=== PATIENT | female | born 1965 | race Hispanic/Latino ===

== ENCOUNTER 2017-03-04 16:00 | Outpatient (RCR) | payer OTHER ==
[~2017-03-04 16:00] MED LIST: CYCLOBENZAPRINE10 MG PO; DICYCLOMINE HCL20 MG PO; NAPROXEN PO; nexium PO; synthroid PO
== END 2017-03-15 ==
LOC: PT 16:00
PROVIDERS: ATTEND Neurological Surgery
DX: M47.892 Other spondylosis, cervical region (principal); M53.82 Other specified dorsopathies, cervical region; M62.81 Muscle weakness (generalized)
CPT/HCPCS: 97139

== ENCOUNTER → 2017-08-11 | Day surgery (SDC) | payer OTHER ==
[~2017-08-11] MED LIST changes: +ASPIR 8181 MG PO; +ATENOLOL100 MG PO; +AZOR 10-40 MG1 EACH PO; +FENTANYL CITRATE/PF 100MCG/2 ML INJ ONE; +HYOSCYAMINE SULFATE 0.5 MG/ML AMP ONE; +LOESTRIN PO; +MIDAZOLAM HCL 2 MG/2 ML VIAL ONE; +NEXIUM PO; +PROPOFOL IV EMULSION 10 MG/ML 50 ML VIAL ONE; +SIMETHICONE 40 MG/0.6 ML BTL ONE; +SYNTHROID PO; +ZANTAC PO; +ZOFRAN PO
--- OUTSIDE RECORDS SUMMARY | 2017-08-11 09:34 | XMS REPORT ---
Author Author [facility] Address Unknown Phone Unavailable Care Team Providers Care [employer] Roller Name Role Phone HO LATIF Unavailable Unavailable Problems This patient has no known problems. Allergies, Adverse Reactions, Alerts This patient has no known allergies or adverse reactions. Medications This patient has no known medications. Results Test Description Test Time Test Comments Text Results Atomic Results Result Comments CT BRAIN WO [place] [address] Patient Name: KARL CORDOBA MR #: [id number] : 1965 Age/Sex: 51/F Req #: [id number] Adm Physician: Ordered by: HO LATIF MD Report #: [id number] Location: ER Room/Bed: Procedure: [id number] CT/CT BRAIN WO Exam Date: Exam Time: REPORT STATUS: Signed History: Altered mental status, weak legs Comparison studies: None Technique: Axial images were obtained from the skull base to the vertex. Coronal and sagittal reconstructions obtained from the axial data. Findings: Scalp/skull: No abnormalities. No fractures, blastic or lytic lesions. Extra-axial spaces: No masses. No fluid collections. Brain sulci: Appropriate for age. Ventricles: Normal in size and configuration. No hydrocephalus. Parenchyma: No abnormal densities. No masses, hemorrhage, acute or chronic cortical vascular insults. Sellar/suprasellar region: No abnormalities Craniocervical junction: Patent foramen magnum. No Chiari one malformation. IMPRESSION: No abnormalities. Signed by: Dr. Alli Cifuentes M.D. on 2016 5:49 PM Dictated By: ALLI CIFUENTES MD, MD 48 Transcribed By: KARISHMA on 01/24/171748 COPY TO: HO LATIF MD CT CERVICAL SPINE WO [place] [address] Patient Name: KARL CORDOBA MR #: [id number] : 1965 Age/Sex: 51/F Req #: [id number] Adm Physician: Ordered by: HO LATIF MD Report #: [id number] Location: ER Room/Bed: Procedure: [id number] CT/CT CERVICAL SPINE WO Exam Date: Exam Time: REPORT STATUS: Signed History: Trauma Comparison studies: None Technique: Axial images were obtained through the cervical region.. Coronal and sagittal images reconstructed from the axial data.. Intravenous contrast: None Findings: Airway: Patent. Fractures: None. Soft tissues: No gross abnormalities. Atlantoaxial articulation: Intact. Alignment: Reversal of the usual lordosis is centered at C6. No scoliosis. Cervicomedullary junction: No abnormalities. The foramen magnum is patent. Vertebrae: No infection or neoplasm. Postsurgical changes: Patient status post anterior cervical fusion at C6-7. Hardware in place. No loosening or failure. The intervening disc is still visualized. 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 Mild spinal canal stenosis at C5-6 due to disc osteophyte complexes. IMPRESSION: 1. No acute abnormalities. 2. Cannot adequately evaluate for ligament, spinal cord and or vascular abnormalities. Chronic findings: Patient status post anterior cervical fusion at C6-C7. Hardware in place. Degenerative changes as described. Signed by: Dr. Alli Cifuentes M.D. on 01/24/2017 5:52 PM Dictated By : ALLI CIFUENTES MD, MD 51 Transcribed By: KARISHMA on 01/24/171751 COPY TO: HO LATIF MD
--- NOTE | 2017-08-11 13:19 | Operative Report ---
DATE OF PROCEDURE: August 11, 2017 REFERRING PHYSICIAN: Dr. James De Dios PROCEDURE PERFORMED 1. Esophagogastroduodenoscopy with biopsies. 2. Colonoscopy with polypectomy. INDICATIONS FOR ESOPHAGOGASTRODUODENOSCOPY: Upper abdominal pain, nausea and vomiting. INDICATIONS FOR COLONOSCOPY: Colorectal cancer screening, personal history of colon polyps. MEDICATION: Patient was done under MAC. Please see anesthesiologist's note. PROCEDURE: With patient in left lateral decubitus position, flexible fiberoptic Olympus gastroscope was introduced into the esophagus under direct visualization without any difficulty. The mucosa overlying the distal esophagus revealed some patchy erythema. The scope was then advanced with ease into the stomach. Mucosa overlying the antrum and the body revealed some patchy erythema and mild to moderate edema and biopsies were obtained and sent to stain for H. pylori. Two duodenal ulcers were noted along the posterior wall of the duodenal bulb without active bleeding or stigmata of recent hemorrhage. The scope was then advanced with ease into the 2nd portion and mucosa overlying the proximal 2nd portion appeared to be within normal limits. The scope was then withdrawn back into the stomach and retroflexion of mucosa overlying the fundus and the cardia appeared to be within normal limits. The scope was then straightened out and was subsequently withdrawn. Patient tolerated the procedure well. IMPRESSION 1. Distal esophagitis. 2. Gastritis, biopsied. Biopsies sent to stain for H. pylori. 3. Duodenal ulcers, bulb, largest of which about 6 mm. Without active bleeding. PLAN: Follow up histology. Increase Nexium to 40 mg 1 p.o. a.c. b.i.d. Patient was then turned around. After adequate lubrication of the anal canal, a flexible fiberoptic Olympus colonoscope was inserted into the rectum with ease and advanced all the way to the cecum. One polyp was encountered in cecum that was snared. One polyp was hot biopsied from the ascending colon. The rest of the ascending, transverse, descending, sigmoid and rectum appeared to be within normal limits. The scope was then retroflexed into the distal rectum and small internal hemorrhoids were noted none of which was actively bleeding. The scope was then straightened and was subsequently withdrawn. Patient tolerated the procedure well. IMPRESSION 1. Cecal polyp snared. 2. Ascending colon polyp hot biopsied. 3. Internal hemorrhoids none actively bleeding. PLAN: Follow up histology. Initiate high-fiber low-fat diet. Initiate high-fiber supplement. Patient will need a followup colonoscopy in 3 years. Job#: [id number] cc:CASSIE DE DIOS DO
== END | disposition home or self-care (01) ==
LOC: OR 09:32
PROVIDERS: ATTEND Internal Medicine Gastroenterology
DX: Z12.11 Encounter for screening for malignant neoplasm of colon (principal); K63.5 Polyp of colon; K29.70 Gastritis, unspecified, without bleeding; K20.9 Esophagitis, unspecified; K26.9 Duodenal ulcer, unspecified as acute or chronic, without hemorrhage or perforation; K64.8 Other hemorrhoids; E03.9 Hypothyroidism, unspecified; K21.9 Gastro-esophageal reflux disease without esophagitis; Z01.810 Encounter for preprocedural cardiovascular examination
CPT/HCPCS: 43239; 45384; 45385; 81025; 93005; J1980; J2250

== ENCOUNTER → 2018-03-29 | Outpatient (CLI) | payer OTHER ==
[~2018-03-29] MED LIST changes: -FENTANYL CITRATE/PF 100MCG/2 ML INJ ONE; -HYOSCYAMINE SULFATE 0.5 MG/ML AMP ONE; -MIDAZOLAM HCL 2 MG/2 ML VIAL ONE; -PROPOFOL IV EMULSION 10 MG/ML 50 ML VIAL ONE; -SIMETHICONE 40 MG/0.6 ML BTL ONE
--- NOTE | 2018-03-29 10:43 | Diagnostic Imaging Report ---
EXAM: US ABDOMEN COMPLETE DATE: 03/29/2018 9:37 AM INDICATION: Right-sided abdominal pain. COMPARISON: None TECHNIQUE: Transverse and longitudinal houser scale and color doppler sonographic images of the upper abdomen were obtained. FINDINGS: LIVER 15.4 cm in the right midclavicular line. Normal echogenicity of the liver with normal contour, no masses. SPLEEN 8.9 cm in maximum diameter. Normal echogenicity, no masses. GALLBLADDER Status post cholecystectomy. BILE DUCTS No intra nor extra-hepatic biliary dilation. Common bile duct measures 0.4 cm PANCREAS: Visualized portions are normal. RIGHT KIDNEY: 10.0 cm Echogenicity: Normal Collecting System: No hydronephrosis Stones: None Cyst/Mass: None LEFT KIDNEY: 9.3 cm Echogenicity: Normal Collecting System: No hydronephrosis Stones: None Cyst/Mass: None VESSELS: Aorta: Visualized portions are within normal size limits Inferior Vena Cava: Visualized portions are normal Main Portal Vein: 0.7 cm, normal size with hepatopetal flow. FREE FLUID: None IMPRESSION: No acute intraabdominal sonographic findings. Status post cholecystectomy. Signed by: Dr. Chaparro Shine MD on 03/29/2018 10:39 AM
== END ==
LOC: US 09:30
PROVIDERS: ATTEND Internal Medicine Gastroenterology
DX: R10.9 Unspecified abdominal pain (principal)
CPT/HCPCS: 76700

== ENCOUNTER → 2020-09-28 | Day surgery (SDC) | payer OTHER ==
[~2020-09-28] MED LIST changes: +FENTANYL CITRATE/PF 100MCG/2 ML INJ ONE; +MIDAZOLAM HCL 2 MG/2 ML VIAL ONE; +PROPOFOL IV EMULSION 10 MG/ML 20 ML VIAL ONE
[2020-09-28 14:25] VITALS: BP 89/62
== END | disposition home or self-care (01) ==
LOC: OR 09:35
PROVIDERS: ATTEND Internal Medicine Gastroenterology
DX: K29.50 Unspecified chronic gastritis without bleeding (principal); K26.9 Duodenal ulcer, unspecified as acute or chronic, without hemorrhage or perforation; E03.9 Hypothyroidism, unspecified; K58.9 Irritable bowel syndrome, unspecified; K21.9 Gastro-esophageal reflux disease without esophagitis; K20.90 Esophagitis, unspecified without bleeding; K62.1 Rectal polyp; K64.8 Other hemorrhoids; R10.13 Epigastric pain; K59.09 Other constipation; Z68.25 Body mass index [BMI] 25.0-25.9, adult; Z87.19 Personal history of other diseases of the digestive system; Z91.018 Allergy to other foods; Z86.010 Personal history of colon polyps; Z01.810 Encounter for preprocedural cardiovascular examination
CPT/HCPCS: 43239; 45380; 81025; 93005; J2250; J2704; J3010; 45378

== ENCOUNTER 2021-03-06 05:09 | Emergency (ER) | payer OTHER ==
[~2021-03-06] VITALS: Ht 162.6 cm; Wt 64.0 kg
[~2021-03-06 05:09] MED LIST changes: -FENTANYL CITRATE/PF 100MCG/2 ML INJ ONE; -MIDAZOLAM HCL 2 MG/2 ML VIAL ONE; -PROPOFOL IV EMULSION 10 MG/ML 20 ML VIAL ONE
[2021-03-06] MEDS ORDERED: SODIUM CHLORIDE 0.9% 1000ML 1,000 ML IV STA (05:28)
[2021-03-06] MEDS ORDERED: DONNATAL/LIDOCAINE/MAALOX 30 ML SUSP PO ONE (05:30)
[2021-03-06 05:40] LABS: BASOPHILS % 0.6 % (0.0-1.0); EOSINOPHILS # (AUTO) 0.1 (0.0-0.4); EOSINOPHILS % 1.5 % (0.0-6.0); HEMATOCRIT 42.2 % (34.2-44.1); HEMOGLOBIN 13.6 g/dL (12.0-16.0); LYMPHOCYTES # (AUTO) 2.5 (1.0-3.2); LYMPHOCYTES % 34.6 % (18.0-39.1); MEAN CORPUSCULAR HEMOGLOBIN 29.1 pg (28-32); MEAN CORPUSCULAR HGB CONC 32.2 g/dL (31-35); MEAN CORPUSCULAR VOLUME 90.2 fL (81-99); MONOCYTES # (AUTO) 0.3 (0.2-0.8); MONOCYTES % 4.4 % (4.4-11.3); NEUTROPHILS # (AUTO) 4.2 (2.1-6.9); NEUTROPHILS % 58.6 % (38.7-80.0); PLATELET COUNT 190 x10e3/uL (140-360); RED BLOOD COUNT 4.68 x10e6/uL (3.6-5.1); RED CELL DISTRIBUTION WIDTH 12.8 % (11.7-14.4)
[2021-03-06 05:50] LABS: COLOR,URINE YELLOW (YELLOW)
[2021-03-06 05:51] LABS: CLARITY,URINE CLEAR (CLEAR); KETONES,URINE NEGATIVE (NEGATIVE); LEUKOCYTE ESTERASE ,URINE SMALL (NEGATIVE); NITRITE,URINE NEGATIVE (NEGATIVE); PROTEIN,URINE DIPSTICK TRACE (NEGATIVE); URINE UROBILINOGEN 0.2 mg/dL (0.2 - 1)
[2021-03-06 05:56] LABS: BACTERIA,URINE FEW /HPF; EPITHELIAL CELLS,URINE FEW /LPF; RBC,URINE 0-5 /HPF (0-5); WBC,URINE (MAN) >50 /HPF (0-5)
[2021-03-06] MEDS ORDERED: MAGNESIUM/ALUMINUM/SIMETHICONE 30 ML UDC ONE (06:08)
[2021-03-06] MEDS ORDERED: BELLADONNA ALK/PHENOBARBITAL 5 ML UDC ONE (06:08)
[2021-03-06] MEDS ORDERED: CEFTRIAXONE 1 GM in SODIUM CHLORIDE 0.9% 50ML 50 ML IV ONE (06:15)
[2021-03-06 06:20] LABS: ALBUMIN 3.8 g/dL (3.5-5.0); ALBUMIN/GLOBULIN RATIO 1.2 (0.8-2.0); CALCIUM 9.1 mg/dL (8.4-10.2); CREATININE, SERUM 0.92 mg/dL (0.57-1.11)
[2021-03-06 06:44] LABS: CREATINE KINASE MB 0.5 ng/mL (0-5.0)
[2021-03-06] MEDS ORDERED: COLACE100 MG PO (06:48)
[2021-03-06] MEDS ORDERED: DULCOLAX10 MG PR (06:48)
[2021-03-06] MEDS ORDERED: MAGNESIUM CITR296 ML PO (06:48)
[2021-03-06] MEDS ORDERED: CEPHALEXIN500 MG PO (06:48)
== END 2021-03-06 07:19 | disposition home or self-care (01) ==
LOC: ER 05:19
DX: N39.0 Urinary tract infection, site not specified (principal); K29.70 Gastritis, unspecified, without bleeding; K59.00 Constipation, unspecified; E03.9 Hypothyroidism, unspecified; Z91.018 Allergy to other foods; Z98.1 Arthrodesis status; Z79.899 Other long term (current) drug therapy
CPT/HCPCS: 36415; 74018; 80053; 81001; 82550; 82553; 83690; 84484; 85025; 93005; 99284; C9113; J0696; J7030

== ENCOUNTER → 2021-12-27 | Outpatient (CLI) | payer OTHER ==
[~2021-12-27] MED LIST changes: +CEPHALEXIN500 MG PO; +COLACE100 MG PO; +DULCOLAX10 MG PR; +IOPAMIDOL 370 MG/ML 100 ML INFUS..BTL INJ ONE; +MAGNESIUM CITR296 ML PO
== END ==
LOC: CT 11:33
PROVIDERS: ATTEND Internal Medicine Gastroenterology
DX: R10.30 Lower abdominal pain, unspecified (principal)
CPT/HCPCS: 74177; Q9967

== ENCOUNTER 2022-08-22 08:52 | Emergency (ER) | payer OTHER ==
[~2022-08-22] VITALS: Ht 162.6 cm; Wt 64.0 kg
[~2022-08-22 08:52] MED LIST changes: -IOPAMIDOL 370 MG/ML 100 ML INFUS..BTL INJ ONE
[2022-08-22] MEDS ORDERED: Morphine 4mg INJECTION 4 MG/ML INJ IV STA (09:10)
[2022-08-22] MEDS ORDERED: ONDANSETRON HCL INJ 2MG/ML 2ML 2 MG/ML VIAL IV STA (09:10)
[2022-08-22] MEDS ORDERED: SODIUM CHLORIDE 0.9% 1000ML 1,000 ML IV STA (09:10)
[2022-08-22 09:21] LABS: BASOPHILS % 0.5 % (0.0-1.0); EOSINOPHILS # (AUTO) 0.1 (0.0-0.4); EOSINOPHILS % 1.7 % (0.0-6.0); HEMATOCRIT 42.8 % (34.2-44.1); LYMPHOCYTES # (AUTO) 2.4 (1.0-3.2); LYMPHOCYTES % 31.7 % (18.0-39.1); MEAN CORPUSCULAR HEMOGLOBIN 28.8 pg (28-32); MEAN CORPUSCULAR HGB CONC 32.7 g/dL (31-35); MEAN CORPUSCULAR VOLUME 88.1 fL (81-99); MONOCYTES # (AUTO) 0.4 (0.2-0.8); MONOCYTES % 5.3 % (4.4-11.3); NEUTROPHILS # (AUTO) 4.5 (2.1-6.9); NEUTROPHILS % 60.7 % (38.7-80.0); PLATELET COUNT 208 x10e3/uL (140-360); RED BLOOD COUNT 4.86 x10e6/uL (3.6-5.1); RED CELL DISTRIBUTION WIDTH 13.4 % (11.7-14.4)
[2022-08-22 09:42] LABS: CLARITY,URINE SL CLOUDY (CLEAR); COLOR,URINE ORANGE (YELLOW); LEUKOCYTE ESTERASE ,URINE LARGE (NEGATIVE)
[2022-08-22 09:43] LABS: KETONES,URINE TRACE (NEGATIVE); NITRITE,URINE POSITIVE (NEGATIVE); PROTEIN,URINE DIPSTICK 2+ (NEGATIVE)
[2022-08-22 09:44] LABS: INR 0.97; PROTHROMBIN TIME 13.4 seconds (11.9-14.5)
[2022-08-22 09:45] LABS: PARTIAL THROMBOPLASTIN TIME 30.8 seconds (23.8-35.5)
[2022-08-22 09:46] LABS: BACTERIA,URINE FEW /HPF; EPITHELIAL CELLS,URINE FEW /LPF
[2022-08-22 09:56] LABS: ALANINE AMINOTRANSFERASE 40 IU/L (0-55); ALBUMIN/GLOBULIN RATIO 1.1 (0.8-2.0); ALKALINE PHOSPHATASE 63 IU/L (40-150); ANION GAP 12.9 mmol/L (8-16); BLOOD UREA NITROGEN 17 mg/dL (7-26); BUN/CREATININE RATIO 20 (6-25); CALCIUM 9.8 mg/dL (8.4-10.2); CARBON DIOXIDE 27 mmol/L (22-29); CHLORIDE 102 mmol/L (98-107); CREATININE, SERUM 0.87 mg/dL (0.57-1.11); GLUCOSE 90 mg/dL (74-118); LIPASE 28 U/L (8-78); MAGNESIUM 1.9 MG/DL (1.3-2.1); POTASSIUM 3.9 mmol/L (3.5-5.1); SODIUM 138 mmol/L (136-145)
[2022-08-22] MEDS ORDERED: KETOROLAC TROMETHAMINE 30 MG/ML VIAL IV STA (10:50)
[2022-08-22] MEDS ORDERED: FAMOTIDINE 20 MG/2 ML VIAL IV ONE (10:59)
[2022-08-22] MEDS ORDERED: CEFDINIR300 MG PO (11:31)
[2022-08-22] MEDS ORDERED: ULTRAM 50MG50 MG PO (11:31)
[2022-08-22] MEDS ORDERED: PYRIDIUM100 MG PO (11:31)
[2022-08-22] MEDS ORDERED: ONDANSETRON ODT4 MG PO (11:31)
[2022-08-22] MEDS ORDERED: CEFUROXIME250 MG PO (12:18)
[2022-08-22 12:42] VITALS: O2SAT 100
== END 2022-08-22 12:37 | disposition home or self-care (01) ==
LOC: ER 08:59
DX: R10.11 Right upper quadrant pain (principal); N39.0 Urinary tract infection, site not specified; R11.0 Nausea; E03.9 Hypothyroidism, unspecified; K21.9 Gastro-esophageal reflux disease without esophagitis; F41.9 Anxiety disorder, unspecified; Z20.822 Contact with and (suspected) exposure to COVID-19; R94.31 Abnormal electrocardiogram [ECG] [EKG]
CPT/HCPCS: 0223U; 36415; 74176; 80053; 81001; 83690; 83735; 84484; 85025; 85610; 85730; 87086; 93005; 99284; C9113; J1885; J2270; J2405; J7030

== ENCOUNTER → 2023-02-02 | Day surgery (SDC) | payer OTHER ==
[~2023-02-02] MED LIST changes: +AMBIEN5 MG PO; +CEFDINIR300 MG PO; +CEFUROXIME250 MG PO; +GLYCOPYRROLATE INJ 0.2 MG/ML VIAL ONE; +LACTATED RINGER'S 1,000 ML ONE; +LIDOCAINE HCL 2% LOCAL INJ 5 ML SDV VIAL INJ ONE; +METOCLOPRAMIDE HCL 10 MG/2ML VIAL ONE; +NITROFURANTOIN50 MG PO; +ONDANSETRON ODT4 MG PO; +PHENTERMINE H37.5 MG PO; +PROPOFOL IV EMULSION 10 MG/ML 20 ML VIAL ONE; +PROTONIX20 MG PO; +PYRIDIUM100 MG PO; +SENNA LAXATIVE8.6 MG PO; +ULTRAM 50MG50 MG PO
[2023-02-02 07:43] VITALS: TEMP 97.7
[2023-02-02 08:10] VITALS: BP 104/80; PULSE 71; RESP 17; O2SAT 98
[2023-02-04 14:12] LABS: ENDOMYSIAL ANTIBODIES, IGA Negative (Negative)
[2023-02-04 20:30] LABS: IMMUNOGLOBULIN A 255 mg/dL (87-352); TISSUE TRANSGLUTAMINASE IGA AB <2 U/mL (0-3)
== END | disposition home or self-care (01) ==
LOC: OR 05:25
PROVIDERS: ATTEND Internal Medicine Gastroenterology
DX: K20.90 Esophagitis, unspecified without bleeding (principal); K29.50 Unspecified chronic gastritis without bleeding; K44.9 Diaphragmatic hernia without obstruction or gangrene; K58.9 Irritable bowel syndrome, unspecified; K59.09 Other constipation; E03.9 Hypothyroidism, unspecified; R05.3 Chronic cough; Z71.3 Dietary counseling and surveillance; Z68.26 Body mass index [BMI] 26.0-26.9, adult; Z01.810 Encounter for preprocedural cardiovascular examination; Z79.899 Other long term (current) drug therapy
CPT/HCPCS: 43239; 82784; 83516; 86256; 93005; C9113; J2001; J2704; J2765; J7121

== ENCOUNTER → 2024-09-30 | Day surgery (SDC) | payer OTHER ==
[~2024-09-30] MED LIST changes: +ASHWAGANDHA62.5 MG PO; +DICYCLOMINE HCL10 MG PO; +FENTANYL CITRATE/PF 100MCG/2 ML INJ ONE; -GLYCOPYRROLATE INJ 0.2 MG/ML VIAL ONE; +HYOSCYAMINE SULFATE 0.5 MG/ML INJ ONE; -LACTATED RINGER'S 1,000 ML ONE; -LIDOCAINE HCL 2% LOCAL INJ 5 ML SDV VIAL INJ ONE; +MAGNESIUM PO; +PROPOFOL IV EMULSION 50 ML IV ONE; +SYNTHROID100 MCG PO
[2024-09-30] MEDS: LACTATED RINGER'S 1,000 ML ONE (11:41)
[2024-09-30 15:20] VITALS: BP 112/74; PULSE 57; RESP 18; TEMP 97.8; O2SAT 98
== END | disposition home or self-care (01) ==
LOC: OR 11:34
PROVIDERS: ATTEND Internal Medicine Gastroenterology
DX: K29.70 Gastritis, unspecified, without bleeding (principal); Z86.0100 Personal history of colon polyps, unspecified; K31.7 Polyp of stomach and duodenum; K20.90 Esophagitis, unspecified without bleeding; K21.9 Gastro-esophageal reflux disease without esophagitis; K31.89 Other diseases of stomach and duodenum; K58.9 Irritable bowel syndrome, unspecified; K64.8 Other hemorrhoids; D64.9 Anemia, unspecified; E03.9 Hypothyroidism, unspecified; N39.0 Urinary tract infection, site not specified; Z01.810 Encounter for preprocedural cardiovascular examination; Z79.899 Other long term (current) drug therapy; Z68.25 Body mass index [BMI] 25.0-25.9, adult
CPT/HCPCS: 43239; 43251; 45378; 93005; J1980; J2470; J2704 ×2; J2765; J3010; J7121